=== PATIENT | female | born 1985 | race Caucasian/White ===

== ENCOUNTER 2024-07-28 03:27 | Emergency (ER) | payer MEDICAID ==
[~2024-07-28] VITALS: Ht 165.1 cm; Wt 69.9 kg
[2024-07-28 04:32] VITALS: BP 153/81; PULSE 84; RESP 16; TEMP 97.9; O2SAT 99
--- NOTE | 2024-07-28 04:39 | ED.PDOC ---
Eye-HPI HPI Comments This is a 39-year-old female chief complaint dental pain. Pt C/O right upper b ack tooth pain starting yesterday. Describes pain as throbbing 10/10 on pain scale nonradiating type pain. Also notes right-sided facial swelling and pain. Denies fever, chills, or injury. Chief Complaint: Tooth Pain Time Seen by MD: 03:43 Reviewed Notes: Nurses Notes, Medications, Allergies Allergies: Coded Allergies: NO KNOWN ALLERGIES (Unverified , 07/28/24) Home Meds Active Scripts Ibuprofen (Ibuprofen) 800 Mg Tab, 1 TAB PO TID PRN for 5 Days, #15 TAB Prov:GUSTAVOJM CERTIFIED LACTATION COUNSELOR 07/28/24 Amoxicillin & Pot Clavulanate (AUGMENTIN TABLET) 875 Mg Tb, 875 MG PO BID for 7 Days, #14 TAB Prov:GUSTAVOJM CERTIFIED LACTATION COUNSELOR 07/28/24 Information Source: Patient Mode of Arrival: Ambulatory Past Medical History PAST MEDICAL HISTORY: Denies Surgical History: Denies all surgeries MEDICAL DIR History: No Pertinent MEDICAL DIR History Family History Family History: Reviewed,noncontributory to illness Social History Smoker: Non-Smoker Alcohol: Denies ETOH Use Drugs: Denies Drug Use Constitutional: denies: chills, diaphoresis, fatigue, fever, malaise, sweats, weakness, others EENTM: reports: others (Dental pain); denies: blurred vision, double vision, ear bleeding, ear discharge, ear drainage, ear pain, ear ringing, eye pain, eye redness, hearing loss, mouth pain, mouth swelling, nasal discharge, nose bleeding, nose congestion, nose pain, photophobia, tearing, throat pain, throat swelling, voice changes Respiratory: denies: cough, hemoptysis, orthopnea, SOB at rest, shortness of breath, SOB with excertion, stridor, wheezing, others Cardiovascular: denies: chest pain, dizzy spells, diaphoresis, Dyspnea on exertion, edema, irregular heart beat, left arm pain, lightheadedness, palpitations, PND, syncope, others Gastrointestinal: denies: abdomen distended, abdominal pain, blood streaked bowels, constipated, diarrhea, dysphagia, difficulty swallowing, hematemesis, melena, nausea, poor appetite, poor fluid intake, rectal bleeding, rectal pain, vomiting, others Genitourinary: denies: abnormal vagina bleeding, burning, dyspareunia, dysuria, flank pain, frequency, hematuria, incontinence, pain, , vagina discharge, urgency, others Neurological: denies: dizziness, fainting, headache, left sided numbness, left sided weakness, numbness, paresthesia, pre-existing deficit, right sided numbness, right sided weakness, seizure, speech problems, tingling, tremors, weakness, others Musculoskeletal: denies: back pain, gout, joint pain, joint swelling, muscle pain, muscle stiffness, neck pain, others Integumetry: denies: bruises, change in color, change in hair/nails, dryness, laceration, lesions, lumps, rash, wounds, others Allergic/Immunocompromised: denies: Difficulty Healing, Frequent Infections, Hives, Itching, others Hematologic/Lymphatic: denies: anemia, blood clots, easy bleeding, easy bruising, swollen glands, others Endocrine: denies: excessive hunger, excessive sweating, excessive thirst, excessive urination, flushing, intolerance to cold, intolerance to heat, unexplained weight gain, unexplained weight loss, others Psychiatric: denies: anxiety, bipolar disorder, depression, hopeless, panic disorder, schizophrenia, sleepless, suicidal, others Physical Exam General Appearance: No Apparent Distress, Normal HEENT: Pharynx Normal, TMs Normal, Other (Right upper back molar number 18 cracked with moderate decay noted palate edema erythema and right-sided facial swelling) Neck: Full Range of Motion, Non-Tender Respiratory: Lungs Clear, No Respiratory Distress, Normal Breath Sounds Cardiovascular: No Murmur, Normal Peripheral Pulses, Regular Rate/Rhythm Breast Exam: Deferred Gastrointestinal: Non Tender, Soft Genitalia: Deferred Pelvic: Deferred Rectal: Deferred Extremities: Normal range of motion Musculoskeletal : Apperance: Normal Neurologic: Alert, concierge manager II-XII nml as Tested, No Motor Deficits, Normal Affect, Normal Mood, No Sensory Deficits Cerebellar Function: Normal Reflexes: Normal Skin: Dry, Normal Color, Warm Lymphatic: No Adenopathy Was a procedure done? Was a procedure done?: No EENT DIFF Eye: N/A Sore Throat: Peritonsillar Abscess, Peritonsillar Cellulitis, Pharyngitis X-Ray, Labs, Meds, VS Vital Signs Date Time Temp Pulse Resp B/P (MAP) Pulse Ox O2 Delivery O2 Flow Rate FiO2 07/28/24 04:32 97.9 84 16 153/81 (105) 99 97.9 07/28/24 04:32 84 16 99 Room Air 07/28/24 03:34 97.9 84 16 153/81 (105) 99 Current Medications Medications (Trade) Dose Ordered Sig/Hussain Route Start Time Stop Time Status Last Admin Ketorolac Tromethamine (Toradol Injection) 60 mg ONCE ONCE IM 07/28/24 04:45 07/28/24 04:46 DC 07/28/24 05:09 Ceftriaxone Sodium (Rocephin) 1,000 mg ONCE ONCE IM 07/28/24 04:45 07/28/24 04:46 DC 07/28/24 05:09 Benzocaine (Hurricaine [place]) 1 spr ONCE ONCE MT 07/28/24 04:45 07/28/24 04:46 DC 07/28/24 05:09 Oxycodone/ Acetaminophen (Percocet 5/ 325MG Tablet) 2 tab ONCE ONCE PO 07/28/24 05:00 07/28/24 05:01 DC 07/28/24 05:10 X-Ray, Labs, Meds, VS Comment Patient given Rocephin 1 g and Toradol 60 mg IM. Patient given can of Hurricaine spray for use at home instructions provided. Reports improvement in pain requesting discharge at this time. Follow up with dental for resolution. Ibuprofen 800 and Augmentin. ER return precautions given patient indicates understanding and agrees with discharge plan of care Time of 1ST Reevaluation: 05:24 Reevaluation 1ST: Improved Patient Education/Counseling: Diagnosis, Treatment, Prognosis, Need For Follow Up Family Education/Counseling: No Family Present Departure 1 Departure Time of Disposition: 05:24 Impression: Primary Impression: Dental infection Disposition: 01 HOME / SELF CARE / HOMELESS Condition: Stable e-Prescriptions Ibuprofen (Ibuprofen) 800 Mg Tab 1 TAB PO TID PRN for 5 Days, #15 TAB Prov: JM CHEN 07/28/24 Amoxicillin & Pot Clavulanate (AUGMENTIN TABLET) 875 Mg Tb 875 MG PO BID for 7 Days, #14 TAB Prov: JM CHEN 07/28/24 Discharged With: Self Critical Care Note Critical Care Time?: No Stability Stability form required: No JM CHENP Jul 28, 2024 04:39
[2024-07-28] MEDS ORDERED: IBUP-1456 PO (04:47)
[2024-07-28] MEDS ORDERED: AUG875T PO (04:47)
[2024-07-28] MEDS: cefTRIAXone SOD 1,000 MG VL IM ONE (05:09)
[2024-07-28] MEDS: BENZOCAINE (DENTAL) 20 % SPRAY 60ML MT ONE (05:09)
[2024-07-28] MEDS: KETOROLAC TROMETH 60MG/2ML VIAL IM ONE (05:09)
[2024-07-28] MEDS: OXYCODONE W/ ACETAMINOPHEN 5/325MG TABLET PO ONE (05:10)
== END 2024-07-28 05:39 | disposition home or self-care (01) ==
LOC: ER 03:27
DX: K04.7 Periapical abscess without sinus (principal)
CPT/HCPCS: 96372; 99284; J0696; J1885